=== PATIENT | female | born 1935 | race Caucasian/White ===

== ENCOUNTER → 2016-10-18 | Outpatient (CLI) | payer MEDICARE, OTHER ==
[~2016-10-18] MED LIST: LEVO25TA4 PO; METO25TA2 PO
== END | disposition home or self-care (01) ==
LOC: CFH 11:55
PROVIDERS: ATTEND Internal Medicine
DX: E03.9 Hypothyroidism, unspecified (principal)
CPT/HCPCS: 36415; 84439; 84443

== ENCOUNTER 2017-06-13 02:03 | Emergency (ER) | payer MEDICARE, OTHER ==
[~2017-06-13] VITALS: Ht 160 cm; Wt 68.6 kg
[2017-06-13 03:24] LABS: BASOPHILS # (AUTO) 0.03 x10^3/uL (0-0.1); BASOPHILS % (AUTO) 1 % (0-1); EOSINOPHILS # (AUTO) 0.07 x10^3/uL (0-0.4); EOSINOPHILS % (AUTO) 2 % (1-7); LYMPHOCYTES # (AUTO) 1.37 x10^3/uL (1-3.4); LYMPHOCYTES % (AUTO) 27 % (22-44); MD NO; MEAN CORPUSCULAR HEMOGLOBIN 27.9 pg (27.0-34.8); MEAN CORPUSCULAR HGB CONC 32.8 g/dL (32.4-35.8); MEAN CORPUSCULAR VOLUME 84.8 fL (80-100); MEAN PLATELET VOLUME 7.9 fL (7.4-10.4); MONOCYTES # (AUTO) 0.57 x10^3/uL (0.2-0.8); MONOCYTES % (AUTO) 11 % (2-9); NEUTROPHILS # (AUTO) 2.98 x10^3/uL (1.8-6.8); NEUTROPHILS % (AUTO) 59 % (42-75); PLATELET COUNT 216 x10^3/uL (130-400); RED BLOOD COUNT 4.51 x10^6/uL (3.82-5.3); RED CELL DISTRIBUTION WIDTH 14.5 % (9.6-15.2)
[2017-06-13 03:38] LABS: ALBUMIN 3.4 g/dL (3.4-5.0); ANION GAP 7 mmol/L (5-15); CALCIUM 8.1 mg/dL (8.5-10.1); CHLORIDE 110 mmol/L (98-107); CREATININE 0.87 mg/dL (0.55-1.02)
[2017-06-13 03:42] LABS: FREE T4 (FREE THYROXINE) 1.11 ng/dL (0.76-1.46); TROPONIN I < 0.015 ng/mL (0.000-0.045)
[2017-06-13 04:21] VITALS: BP 124/85
== END 2017-06-13 05:10 | disposition home or self-care (01) ==
LOC: ED 03:24
DX: F43.20 Adjustment disorder, unspecified (principal); R94.6 Abnormal results of thyroid function studies
CPT/HCPCS: 36415; 71045; 80048; 82040; 83735; 84439; 84443; 84484; 85025; 93005; 99285

== ENCOUNTER → 2017-07-05 | Outpatient (CLI) | payer MEDICARE, OTHER ==
[2017-07-05 15:49] LABS: ALBUMIN 3.6 g/dL (3.4-5.0); ANION GAP 7 mmol/L (5-15); CALCIUM 8.4 mg/dL (8.5-10.1); CHLORIDE 109 mmol/L (98-107)
[2017-07-05 16:00] LABS: ALANINE AMINOTRANSFERASE 21 U/L (12-78); ALKALINE PHOSPHATASE 55 U/L (45-117); BILIRUBIN,TOTAL 0.4 mg/dL (0.2-1.0); CREATININE 0.91 mg/dL (0.55-1.02); TOTAL PROTEIN 6.5 g/dL (6.4-8.2)
== END | disposition home or self-care (01) ==
LOC: LAB 14:24
PROVIDERS: ATTEND Internal Medicine
DX: E03.9 Hypothyroidism, unspecified (principal); M85.80 Other specified disorders of bone density and structure, unspecified site
CPT/HCPCS: 36415; 80053; 82306

== ENCOUNTER → 2018-02-28 | Outpatient (CLI) | payer MEDICARE, OTHER ==
[2018-02-28 13:05] LABS: CHOL/HDL RATIO 2.2; FREE T4 (FREE THYROXINE) 1.23 ng/dL (0.76-1.46); LDL/HDL RATIO 1.1 (0.5-3.0); THYROID STIMULATING HORMONE 4.17 mIU/L (0.358-3.740)
== END | disposition home or self-care (01) ==
LOC: CFH 10:53
PROVIDERS: ATTEND Internal Medicine
DX: E78.00 Pure hypercholesterolemia, unspecified (principal)
CPT/HCPCS: 36415; 80061; 84439; 84443

== ENCOUNTER → 2018-07-12 | Outpatient (CLI) | payer MEDICARE, OTHER | END | disposition home or self-care (01) | LOC: CFH 14:48 | PROVIDERS: ATTEND Internal Medicine | DX: E03.9 Hypothyroidism, unspecified (principal) | CPT/HCPCS: 36415; 84443 ==

== ENCOUNTER → 2018-08-09 | Outpatient (CLI) | payer MEDICARE, OTHER ==
[2018-08-09 13:07] LABS: ALBUMIN 3.7 g/dL (3.4-5.0); ANION GAP 3 mmol/L (5-15); CALCIUM 8.8 mg/dL (8.5-10.1); CHLORIDE 111 mmol/L (98-107)
[2018-08-09 13:11] LABS: ALANINE AMINOTRANSFERASE 23 U/L (12-78); ALKALINE PHOSPHATASE 60 U/L (45-117); BILIRUBIN,TOTAL 0.8 mg/dL (0.2-1.0); CHOL/HDL RATIO 2.7; CHOLESTEROL, TOTAL 231 mg/dL (140-239); CREATININE 0.87 mg/dL (0.55-1.02); HDL CHOL % 38 % (28-40); HDL CHOLESTEROL (DIRECT) 87 mg/dL (40-60); LDL CHOLESTEROL,CALCULATED 129 mg/dL (54-169); LDL/HDL RATIO 1.5 (0.5-3.0); TOTAL PROTEIN 6.6 g/dL (6.4-8.2); TRIGLYCERIDES 76 mg/dL (50-200); VLDL CHOLESTEROL 15 mg/dL (0-25)
== END | disposition home or self-care (01) ==
LOC: CFH 09:14
PROVIDERS: ATTEND Internal Medicine Cardiovascular Disease
DX: M85.80 Other specified disorders of bone density and structure, unspecified site (principal); I48.4 Atypical atrial flutter; Z88.1 Allergy status to other antibiotic agents; I10 Essential (primary) hypertension; Z88.2 Allergy status to sulfonamides
CPT/HCPCS: 36415; 80053; 80061; 82306

== ENCOUNTER → 2019-04-26 | Outpatient (CLI) | payer MEDICARE, OTHER ==
[2019-04-26 13:51] LABS: FREE T4 (FREE THYROXINE) 1.01 ng/dL (0.76-1.46)
== END | disposition home or self-care (01) ==
LOC: CFH 11:43
PROVIDERS: ATTEND Nurse Practitioner
DX: E03.9 Hypothyroidism, unspecified (principal)
CPT/HCPCS: 36415; 84439; 84443

== ENCOUNTER → 2019-11-06 | Outpatient (CLI) | payer MEDICARE, OTHER ==
[2019-11-06 12:52] LABS: ALANINE AMINOTRANSFERASE 22 U/L (12-78); ANION GAP 1 mmol/L (5-15); CALCIUM 8.8 mg/dL (8.5-10.1); CHLORIDE 112 mmol/L (98-107)
[2019-11-06 13:07] LABS: ALBUMIN 3.4 g/dL (3.4-5.0); ALKALINE PHOSPHATASE 53 U/L (45-117); BILIRUBIN,TOTAL 0.6 mg/dL (0.2-1.0); CHOL/HDL RATIO 2.5; CHOLESTEROL, TOTAL 202 mg/dL (140-239); CREATININE 0.89 mg/dL (0.55-1.02); HDL CHOL % 40 % (28-40); HDL CHOLESTEROL (DIRECT) 80 mg/dL (40-60); LDL CHOLESTEROL,CALCULATED 106 mg/dL (54-169); LDL/HDL RATIO 1.3 (0.5-3.0); T4 (THYROXINE) 9.7 mcg/dL (4.8-13.9); TOTAL PROTEIN 6.3 g/dL (6.4-8.2); TRIGLYCERIDES 82 mg/dL (50-200); VLDL CHOLESTEROL 16 mg/dL (0-25)
[2019-11-06 13:21] LABS: BASOPHILS # (AUTO) 0.03 x10^3/uL (0-0.1); BASOPHILS % (AUTO) 1 % (0-1); EOSINOPHILS # (AUTO) 0.13 x10^3/uL (0-0.4); EOSINOPHILS % (AUTO) 4 % (1-7); LYMPHOCYTES # (AUTO) 1.23 x10^3/uL (1-3.4); LYMPHOCYTES % (AUTO) 36 % (22-44); MD NO; MEAN CORPUSCULAR HEMOGLOBIN 27.4 pg (27.0-34.8); MEAN CORPUSCULAR HGB CONC 32.5 g/dL (32.4-35.8); MEAN CORPUSCULAR VOLUME 84.2 fL (80-100); MEAN PLATELET VOLUME 8.4 fL (7.4-10.4); MONOCYTES # (AUTO) 0.34 x10^3/uL (0.2-0.8); MONOCYTES % (AUTO) 10 % (2-9); NEUTROPHILS # (AUTO) 1.68 x10^3/uL (1.8-6.8); NEUTROPHILS % (AUTO) 49 % (42-75); PLATELET COUNT 226 x10^3/uL (130-400); RED BLOOD COUNT 4.51 x10^6/uL (3.82-5.3); RED CELL DISTRIBUTION WIDTH 14.7 % (9.6-15.2)
== END | disposition home or self-care (01) ==
LOC: CFH 09:17
PROVIDERS: ATTEND Internal Medicine Cardiovascular Disease
DX: C50.911 Malignant neoplasm of unspecified site of right female breast (principal); E03.9 Hypothyroidism, unspecified; I10 Essential (primary) hypertension; I48.3 Typical atrial flutter; I48.4 Atypical atrial flutter; R00.2 Palpitations; Z79.899 Other long term (current) drug therapy
CPT/HCPCS: 36415; 80053; 80061; 83036; 84436; 84481; 85025